=== PATIENT | male | born 2005 ===

== ENCOUNTER 2025-03-14 19:30 | Emergency (ER) | payer MEDICAID, SELFPAY ==
--- OUTSIDE RECORDS SUMMARY | 2022-12-07 06:00 | XMS_ITS | Continuity of Care Document ---
Author Organization [facility] Address [address] [place] [address] Phone Care Team Providers Care Engraver Flatware Name Role Phone Adam Grubbs Unavailable Unavailable Procedures Procedure Date Imm Admin Through 17 Yrs Of Age 023 MENB RP W/OMV VACCINE IM Imm Admin Through 17 Yrs Of Age 023 Meningococcal Conjugate Vaccine 023 Imm Admin Through 17 Yrs Of Age 023 Meningococcal Conjugate Vaccine 023 Imm Admin Through 17 Yrs Of Age 023 MENB RP W/OMV VACCINE IM Limited Oral Eval Oral Hygiene Instruction Sealant Excluded Bitewings Four Films Panoramic Film Prophylaxis Adult Topical Juventino Of [place]our[place] 021 Oral Hygiene Instruction Intraoral-periapical 1st Film Comp Oral Eval New/estab Patient 2020 Moderate Risk OFFICE/OUTPATIENT VISIT, EST HEP A VACC, PED/ADOL, 2 DOSE DTAP VACCINE, < 7 YRS, IM MMR VACCINE, SC POLIOVIRUS, IPV, SC/IM CHICKEN POX VACCINE, SC Advance Directives Directive Yes / No Effective Date File Name No Information Encounters Encounter Description Practice Location Reason(s) For Visit Diagnoses Date Provider Providers Copied on Encounter [facility], [address], [place], [id number], [place] tel:[phone] [facility] No Information Andrew Dhillon. [address], [place], [id number], [place]. tel:[phone] [facility], [address], [place], [id number], [place] tel:[phone] [facility] No Information Visci DO Medina. [address], [place], [id number], [place]. tel:[phone] [facility], [address], [place], [id number], [place] tel:[phone] [facility] No Information Visci DO Medina. [address], [place], [id number], [place]. tel:[phone] [facility], [address], [place], [id number], [place] tel:[phone] Dental Clinic Dental limited (chief complaint) Encounter for screening for dental disorders Emory Yen. [address] [place], [address], [place]. tel:[phone] [facility], [address], [place], [id number], [place] tel:[phone] Dental Clinic prophy (chief complaint) Encounter for screening for dental disorders Kostas Cope. [address], [place], [id number], [place]. tel:[phone] OFFICE/OUTPATI ENT VISIT, EST [facility], [address], [place], [id number], [place] tel:[phone] [facility] No Information Andrew Dhillon. [address], [place], [id number], [place]. tel:[phone] Family History Family Member Type Diagnosis Age At Onset Mother Problem Alive and well Father Problem Alive and well Immunizations Vaccine Date Status Comments meningococcal B, OMV, 2 dose schedule administered Source: New Immuniza tion Record Meningococcal MCV4O administered Source: New Immunization Record meningococcal B, OMV, 2 dose schedule administered Source: New Immuniza tion Record Hep A (ped/adol, 2 dose) administered Tamela rce: New Immunization Record Varicella administered Source: New Imm unization Record MMR administered Source: New Imm unization Record polio, inactive administered Source: New Immunization Record DTaP (younger than 7 yrs) administered So urce: New Immunization Record Payers Payer name Insurance type Covered republican ID Authoriza tion(s) [employer] CFC [id number] MC [id number] Medicaid Wrap - [facility] MC [id number] [employer] CFC [id number] MC [id number] Medicaid Wrap - FQHC MC [id number] [employer] CFC [id number] MC [id number] Medicaid Wrap - [employer]QHC MC [id number] Social History Type Description Quantity Date Captured Comments Alcohol Use Details Unknown Caffeine Use Details Unknown Tobacco Use Status No Information Smoking Status No Information Sex Male Sexual Orientation Don't Know Gender Identity Male Chief Complaint And Reason For Visit No Information Reason For Referral Reason For Referral No Information Plan Of Treatment Date Type Action Status Goal Depression screening. Due on due Goal Influenza vaccine. Due on Au g due Goal Tdap. Due on due Goal PRAPARE ASSESSMENT. Due on A due Goal RLP. Due on due Goal Tdap Vaccine. Due on 2022 due Goal Influenza vaccine. Due on due Goal Depression screening. Due on due Goal RLP. Due on due Goal PRAPARE ASSESSMENT. Due on due Goal Tdap. Due on due Goal Tdap Vaccine. Due on 2022 due History Of Present Illness Encounter Date Complaint History Of Prese nt Illness Dental limited dental limited, lower right, referral for RCT #30 prophy prophy Functional Status Date Functional Assessmen t No Information Instructions Date Instruction Additional Infor mation No Information Assessments Type Assessment Date No Information Patient Care Teams Name Effective Dates (start - stop) Status Members No Information
[2025-03-14] VITALS (11 sets, daily range): BP systolic 143–161; BP diastolic 79–92; PULSE 65–85; TEMP 37.2; O2SAT 96–100; BMI 21.2
--- NOTE | 2025-03-14 19:49 | PC.NURSE ---
this patient informed of his plan of care blood draw, and voices no other concerns, needs and shows no signs of distress. 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
--- NOTE | 2025-03-14 19:59 | CT_ITS ---
The [address] [address] Patient Name: SEDA MCNAIR MRN: [id number] date: 2005 Sex: M Assigned Patient Location: ER Current Patient Location: ED.MAIN Accession/Order Number: [id number] Exam Date: 03/14/2025 20:20 Report Date: 03/14/2025 20:57 At the request of: ANDREAS RAMSEY DO Procedure: CT abdomen pelvis w con CT ABDOMEN AND PELVIS WITH INTRAVENOUS CONTRAST: CLINICAL HISTORY: RUQ pain, acholic stools COMPARISON: None TECHNIQUE: Spiral images were obtained through the abdomen and pelvis following the administration of intravenous contrast. This CT exam was performed using one or more following dose reduction techniques: Automated exposure control, adjustment of the mA and/or kV according to patient size, or use of iterative reconstruction technique. FINDINGS: Lung Bases: [Minimal bibasilar atelectasis and or scarring.] Organs:Liver, gallbladder, spleen, adrenals and pancreas unremarkable. Right superior pole renal hypodensity identified likely a cyst. No hydronephrosis. No abnormal enhancing renal lesions.[ GI: Mild retained stool throughout the colon. No bowel obstruction. Appendix unremarkable.[ Pelvis:[Bladder unremarkable. Prostate unremarkable.] Peritoneum/Retroperitoneum:No free air or free fluid. No pathologically enlarged adenopathy. Aorta normal in caliber.[ Abd wall/Bones:No suspicious osseous lesion[ CT/CT abdomen pelvis w con IMPRESSION: Negative acute inflammatory process or bowel obstruction. Impression dictated by: Meet Cabrales M.D. 03/14/2025 8:57 PM Dictation Location: [place] [address] Electronically authenticated by: [id number] Y Date: 03/14/2025 20:57
--- NOTE | 2025-03-14 19:59 | US_ITS ---
[place] [id number] Patient Name: SEDA MCNAIR MRN: [id number] date: 2005 Sex: M Assigned Patient Location: ED.MAIN Current Patient Location: ED.MAIN Accession/Order Number: [id number] Exam Date: 03/14/2025 20:38 Report Date: 03/14/2025 21:31 At the request of: ANDREAS RAMSEY DO Procedure: US right upper quadrant Ultrasound right upper quadrant INDICATION: Right upper quadrant pain, acholic stool COMPARISON: CT abdomen pelvis 03/14/2025 FINDINGS: Liver unremarkable. Unremarkable gallbladder. Common bile duct 6.3 mm. Pancreas unremarkable. Right kidney without hydronephrosis. Incidental 9 mm cyst involving the kidney. No hydronephrosis no ascites. US/US right upper quadrant IMPRESSION: Unremarkable upper quadrant ultrasound . Impression dictated by: Meet Cabrales M.D. 03/14/2025 9:31 PM Dictation Location: [place] [address] Electronically authenticated by: [id number] Y Date: 03/14/2025 21:31
[2025-03-14 20:02] LABS: Hematocrit 44.0 % (42.0-54.0); Hemoglobin 16.1 g/dL (14.0-18.0); Immature Granulocytes Abs Auto 0.01 10^3/uL (0.00-0.03); Immature Granulocytes Pct Auto 0.2 % (0.0-0.5); Lymphocytes Absolute Auto 1.9 10^3/uL (1.2-3.8); Mean Corpuscular HGB Conc 36.6 g/dL (29.9-35.2); Mean Corpuscular Hemoglobin 30.4 pg (25.9-34.0); Mean Corpuscular Volume 83.0 fL (80.0-94.0); Platelet Count 251 10^3/uL (150-450); Red Blood Count 5.30 10^6/uL (4.70-6.10); White Blood Count 5.5 10^3/uL (4.0-11.0)
--- NOTE | 2025-03-14 20:06 | PC.NURSE ---
this patient updated of new orders for him, ct and ultra sound, and iv for ct. this patient voices no concerns, needs and shows no signs of distress
--- NOTE | 2025-03-14 20:08 | ED_ITS ---
HPI HPI - General Adult General Chief complaint: Nausea/Vomiting/Diarrhea Stated complaint: STOOL IS SAND WHITE/ RANDOM FATIGUE Time Seen by Provider: 03/14/25 19:35 Source: patient Mode of arrival: walk-in Limitations: no limitations History of Present Illness HPI narrative: Patient is a 19-year-old male presenting to the emergency department for concerns of white stool. Patient states that yesterday he had white color stool that resembled sand. He states that today he had another episode of white- colored stool. He has not had a normal bowel movement since these 2 episodes. In addition to the abnormal stool color, he has been experiencing intermittent right upper quadrant abdominal pain for the last 6 months. He cannot state what makes the pain better or worse. He states he has been intermittently nauseous, but no vomiting. Still tolerating p.o. appropriately. He denies any recent weight loss. He states over the last 2 years he has been told he might be a diabetic as he has glucose in his urine. He was treated for UTI 2 years ago when they found this out. He is not currently on insulin or any daily medications. He takes no [id number] supplements. He denies alcohol use. He denies chest pain or shortness of breath. No fevers or chills. Related Data Home Medications ?Medication ?Instructions ?Recorded ?Confirmed No Known Home Medications 03/14/2502/18 Allergies Allergy/AdvReac Type Severity Reaction Status Date / Time No Known Drug Allergies Allergy Verified 03/14/25 19:39 Review of Systems ROS Status of ROS 10 or more systems reviewed and unremark able except as noted in history and below PFSH PFSH Social History Little interest or pleasure in doing things: not at all Feeling down, depressed, or hopeless: not at all Exam Narrative Exam Narrative: CONSTITUTIONAL: Well-appearing, answering questions and following commands appropriately SKIN: Was warm and dry, no jaundice. EYES: Sclerae white. No scleral icterus. EARS, NOSE, THROAT: Moist oral mucosa. RESPIRATORY: Clear to auscultation bilaterally, no wheezes, crackles, or stridor, no use of accessory muscles CARDIOVASCULAR: Normal rate and regular rhythm. There is no S3, S4, murmur, rub. GASTROINTESTINAL: Abdomen is soft, nontender, and nondistended. No hepatomegaly. Negative Ty sign. No rebound tenderness or guarding. MUSCULOSKELETAL: No peripheral edema. NEUROLOGIC: Patient is awake and alert. Facies were symmetrical. Constitutional Vital Signs, click to edit/add: Last Vital Signs Temp 99.0 F 03/14/25 19:40 Pulse 85 03/14/25 21:55 Resp 18 03/14/25 21:55 BP 143/79 H 03/14/25 21:55 Pulse Ox 100 03/14/25 21:55 O2 Del Method Room Air 03/14/25 19:40 Course Vital Signs Vital signs: Vital Signs Temperature 99.0 F 03/14/25 19:40 Pulse Rate 65 03/14/25 19:40 Respiratory Rate 18 03/14/25 19:40 Blood Pressure 161/92 H 03/14/25 19:40 Pulse Oximetry 99 03/14/25 19:40 Oxygen Delivery Method Room Air 03/14/25 19:40 Temperature 99.0 F 03/14/25 19:40 Pulse Rate 85 03/14/25 21:55 Respiratory Rate 18 03/14/25 21:55 Blood Pressure 143/79 H 03/14/25 21:55 Pulse Oximetry 100 03/14/25 21:55 Oxygen Delivery Method Room Air 03/14/25 19:40 Medical Decision Making MDM Narrative Medical decision making narrative: Patient is a 19-year-old male presenting to the emergency department with 2 episodes of white color, possibly acholic, stools and 6 months of intermittent right upper quadrant abdominal pain. His vital signs were significant for mild hypertension, otherwise within normal limits. He is afebrile and hemodynamically stable. He has a normal physical examination. Differential diagnosis for acholic stools and right upper quadrant discomfort includes, but not limited to, choledocholithiasis, biliary strictures, primary sclerosing cholangitis, malignancy, or other hepatobiliary pathologies. IV was established and laboratory studies obtained. CT abdomen/pelvis and right quadrant ultrasound were obtained. CT abdomen/pelvis independently reviewed and interpreted by myself and radiology demonstrated no acute intra-abdominal process. Right upper quadrant ultrasound demonstrated no acute pathology. Laboratory studies were unremarkable. No significant electrolyte or metabolic derangement. No evidence of acute kidney injury. No anemia, leukocytosis, or thrombocytopenia. No transaminitis. Mild indirect hyperbilirubinemia. Normal hemoglobin A1c. Lipase non-elevated. On reevaluation, patient appears well and is tolerating p.o. Overall, it is unclear exactly the etiology to explain his symptoms, however I did instruct him to follow-up with PCP soon as possible for further monitoring and diagnostic testing. Return precautions were given including any new or concerning symptoms. He requested to be tested for gonorrhea/chlamydia, which I did order. Patient understands and agrees to the plan. FINAL IMPRESSION: #Acute acholic stools #Acute mild indirect hyperbilirubinemia DISPOSITION: Discharged home CONDITION: Good Lab Data Lab results reviewed: Yes I reviewed the patient's lab results Labs: Lab Results 03/14/25 Range/Units 19:50 WBC 5.5 (4.0-11.0) 10^3/uL RBC 5.30 (4.70-6.10) 10^6/uL Hgb 16.1 (14.0-18.0) g/dL Hct 44.0 (42.0-54.0) % MCV 83.0 (80.0-94.0) fL MCH 30.4 (25.9-34.0) pg MCHC 36.6 H (29.9-35.2) g/dL RDW 12.4 (11.0-15.0) % Plt Count 251 (150-450) 10^3/uL MPV 8.9 L (9.5-13.5) fL Neut % (Auto) 51.1 (43.0-75.0) % Lymph % (Auto) 35.5 (20.5-60.0) % [place] % (Auto) 9.7 (1.7-12.0) % Eos % (Auto) 2.0 (0.9-7.0) % Baso % (Auto) 1.5 (0.2-2.0) % Neut # (Auto) 2.8 (1.4-6.5) 10^3/uL Lymph # (Auto) 1.9 (1.2-3.8) 10^3/uL [place] # (Auto) 0.5 (0.3-0.8) 10^3/uL Eos # (Auto) 0.1 (0.0-0.7) 10^3/uL Baso # (Auto) 0.1 (0.0-0.1) 10^3/uL Abs Immat Gran (auto) 0.01 (0.00-0.03) 10^3/uL Imm/Tot Granulo (auto) 0.2 (0.0-0.5) % Sodium 139 (136-145) mmol/L Potassium 3.8 (3.5-5.1) mmol/L Chloride 106 (98-107) mmol/L Carbon Dioxide 26.7 (21.0-32.0) mmol/L Anion Gap 10.1 BUN 9.0 (7.0-18.0) mg/dL Creatinine 0.67 L (0.70-1.30) mg/dL Est GFR ( Amer) >60 (>=60 mL/min/1.73m^2) Est GFR (Non-Af Amer) >60 (>=60 mL/min/1.73m^2) BUN/Creatinine Ratio 13.4 Glucose 104 (74-106) mg/dL Estimat Average Glucose 91 mg/dL Hemoglobin A1c 4.8 (4.5-6.2) % Calcium 9.3 (8.5-10.1) mg/dL Total Bilirubin 2.4 H (0.2-1.0) mg/dL Direct Bilirubin 0.3 H (0.0-0.2) mg/dL AST 20 (15-37) U/L ALT 28 (16-63) U/L Alkaline Phosphatase 95 (46-116) U/L Total Protein 7.1 (6.4-8.2) g/dL Albumin 4.3 (3.4-5.0) g/dL Globulin 2.8 g/dL Albumin/Globulin Ratio 1.5 Lipase 22.0 (16.0-77.0) U/L Imaging Data CT scan - abdomen: Attestation: I personally reviewed and interpreted this imaging study as follows: Radiologist's impression: ITS Impressions Abdomen/Pelvis CT 03/14/25 19:59 IMPRESSION: Negative acute inflammatory process or bowel obstruction. Impression dictated by: Meet Cabrales M.D. 03/14/2025 8:57 PM Dictation Location: [place] [address] Electronically authenticated by: [id number] Y Date: 03/14/2025 20:57 Upper Quadrant Ultrasound 03/14/25 19:59 IMPRESSION: Unremarkable upper quadrant ultrasound . Impression dictated by: Meet Cabrales M.D. 03/14/2025 9:31 PM Dictation Location: [place] [address] Electronically authenticated by: [id number] Y Date: 03/14/2025 21:31 Discharge Plan Discharge Chief Complaint: Nausea/Vomiting/Diarrhea Clinical Impression: Indirect hyperbilirubinemia, Acholic stool Patient Disposition: Home, Self-Care Time of Disposition Decision: 21:35 Condition: Good Mode of Transportation: Private Vehicle Prescriptions / Home Meds: No Action No Known Home Medications Print Language: Ukrainian Instructions: Abdominal Pain (ED) Additional Instructions: Follow up with PCP as soon as possible Referrals: Keyanna Paredes DO [Physician, Hospitalist] - As soon as possible Physician,Non-Staff, MD [Primary Care Provider] - 1 week Discharge Date/Time: 03/14/25 22:00
[2025-03-14 20:17] LABS: Alanine Aminotransferase 28 U/L (16-63); Albumin Globulin Ratio 1.5; Albumin Level 4.3 g/dL (3.4-5.0); Alkaline Phosphatase 95 U/L (46-116); Anion Gap 10.1; Aspartate Amino Transferase 20 U/L (15-37); Blood Urea Nitrogen 9.0 mg/dL (7.0-18.0); Calcium 9.3 mg/dL (8.5-10.1); Carbon Dioxide 26.7 mmol/L (21.0-32.0); Chloride 106 mmol/L (98-107); Estimated GFR (African America >60 (>=60 mL/min/1.73m^2); Estimated GFR (Non-African Ame >60 (>=60 mL/min/1.73m^2); Globulin 2.8 g/dL; Glucose 104 mg/dL (74-106); Lipase 22.0 U/L (16.0-77.0); Potassium 3.8 mmol/L (3.5-5.1); Sodium 139 mmol/L (136-145); Total Protein 7.1 g/dL (6.4-8.2)
--- NOTE | 2025-03-14 22:02 | PC.NURSE ---
i gave this patient verbal and written discharge orders and this patient voices yes to understanding these. at time of discharge this patient voices no concerns, needs and shows no signs of distress
[2025-03-16 20:08] LABS: Neisseria gonorrhoeae, NAA Negative (Negative)
--- NOTE | 2025-03-19 01:15 | PC.NURSE ---
Patient called back regarding missed calls from the ED. Dr. Watson spoke with patient, notified him of his positive chlamydia results and that a prescription has been sent to his pharmacy.
== END 2025-03-14 22:00 | disposition home or self-care (01) ==
PROVIDERS: Emergency Provider Student in an Organized Health Care Education/Training Program
DX: R19.5 Other fecal abnormalities (principal); E80.6 Other disorders of bilirubin metabolism; Z87.440 Personal history of urinary (tract) infections
CPT/HCPCS: 36415; 74177; 76705; 80053; 82248; 83036; 83690; 85025; 87491; 87591; 99285; Q9967